=== PATIENT | female | born 1975 | race Caucasian/White ===

== ENCOUNTER → 2019-12-24 10:58 | Outpatient (CLI) | payer OTHER, SELFPAY ==
--- NOTE | ~2019-12-24 | MM_ITS ---
EXAMINATION: MM screening dea BI w lisa HISTORY: Screening mammogram TECHNIQUE: Craniocaudal and mediolateral oblique 3-D tomosynthesis images were obtained and synthetic 2-D images were generated. CAD analysis was submitted and interpreted. COMPARISON: No prior mammogram is available for comparison at this institution. BREAST PARENCHYMAL COMPOSITION: The breasts are extremely dense, which lowers the sensitivity of mamm ography. FINDINGS: There is no evidence of suspicious mass, calcification, or architectural distortion to sugg est malignancy in either breast. IMPRESSION: 1. No mammographic evidence of malignancy. 2. Recommend routine screening mammography in one year. BI-RADS Category 1: Negative Reviewed, dictated and finalized at location A. INE STITCHER
== END ==
PROVIDERS: PCP Family Medicine; Visit Provider Family Medicine
DX: Z12.31 Encounter for screening mammogram for malignant neoplasm of breast (principal)
CPT/HCPCS: 77063; 77067

== ENCOUNTER 2022-04-19 07:55 | Outpatient (CLI) | payer OTHER, SELFPAY ==
[2022-04-19 08:53] LABS: Basophils Absolute Auto 0.1 K/mm3 (0.0-0.1); Basophils Percent Auto 1.1 % (0.2-1.2); Eosinophils Absolute Auto 0.1 K/mm3 (0-0.3); Eosinophils Percent Auto 3.1 % (0-4.4); Hematocrit 41.7 % (37.0-47.0); Lymphocytes Absolute Auto 1.54 K/mm3 (0.9-3.2); Lymphocytes Percent Auto 34.5 % (18.3-44.2); Mean Corpuscular HGB Conc 33.6 g/dl (32-36); Mean Corpuscular Hemoglobin 31.5 pg (26-34); Mean Corpuscular Volume 93.7 fl (80-100); Mean Platelet Volume 10.9 fl (7.4-10.4); Monocytes Absolute Auto 0.4 K/mm3 (0.1-0.6); Monocytes Percent Auto 8.1 % (2.6-8.5); Neutrophils Absolute Auto 2.4 K/mm3 (1.3-6.7); Neutrophils Percent Auto 53.2 % (45.5-73.1); Platelet Count Result 246 k/mm3 (150-375); Red Blood Count 4.45 M/mm3 (4.2-5.4); Red Cell Distribution Width 12.6 % (11.5-14.5); White Blood Count 4.5 K/mm3 (4.5-10.0)
[2022-04-19 09:05] LABS: Alanine Aminotransferase 16 U/L (6-35); Albumin Level 4.3 g/dL (3.5-5.1); Alkaline Phosphatase 37 U/L (38-126); Anion Gap 5 mmol/L (8-16); Aspartate Amino Transferase 20 U/L (14-36); Bilirubin,Total 0.3 mg/dL (0.2-1.3); Blood Urea Nitrogen 27 mg/dL (7-17); Calcium 8.7 mg/dL (8.4-10.2); Carbon Dioxide 27 mmol/L (22-30); Chloride 106 mmol/L (98-107); Cholesterol 178 mg/dL (0-200); Estimated Glomerular Filt Rate > 60; Glucose 82 mg/dL (65-110); HDL Direct 64 mg/dL; Potassium 4.6 mmol/L (3.4-5.0); Sodium 138 mmol/L (137-145); Triglycerides 55 mg/dL (<150)
[2022-04-19 09:16] LABS: LDL Cholesterol Direct 82 mg/dL
== END 2022-04-19 07:56 | disposition home or self-care (01) ==
PROVIDERS: PCP Family Medicine; Visit Provider Nurse Practitioner Gerontology
DX: Z00.00 Encounter for general adult medical examination without abnormal findings (principal)
CPT/HCPCS: 36415; 80053; 80061; 84443; 85025

== ENCOUNTER → 2023-04-04 13:42 | Outpatient (CLI) | payer OTHER, SELFPAY ==
--- NOTE | ~2023-04-04 | MM_ITS ---
EXAMINATION: MM screening dea BI w lisa HISTORY: Screening mammogram TECHNIQUE: Craniocaudal and mediolateral oblique 3-D tomosynthesis images were obtained and synthetic 2-D images were generated. Bilateral exaggerated lateral craniocaudal views CAD analysis was submitt ed and interpreted. COMPARISON: December 24, 2019 bilateral screening mammogram BREAST PARENCHYMAL COMPOSITION: The breasts are extremely dense, which lowers the sensitivity of mamm ography. FINDINGS: There is no evidence of suspicious mass, calcification, or architectural distortion to sugg est malignancy in either breast. There has been no suspicious interval change. IMPRESSION: 1. No mammographic evidence of malignancy. 2. Recommend routine screening mammography in one year. BI-RADS Category 1: Negative Reviewed, dictated and finalized at location A.
== END ==
PROVIDERS: PCP Family Medicine; Visit Provider Nurse Practitioner Gerontology
DX: Z12.31 Encounter for screening mammogram for malignant neoplasm of breast (principal)
CPT/HCPCS: 77063; 77067

== ENCOUNTER 2023-06-25 08:27 | Outpatient (CLI) | payer OTHER, SELFPAY ==
[2023-06-25 09:17] LABS: Basophils Absolute Auto 0.1 K/mm3 (0.0-0.1); Basophils Percent Auto 0.9 % (0.2-1.2); Eosinophils Absolute Auto 0.1 K/mm3 (0-0.3); Eosinophils Percent Auto 2.1 % (0-4.4); Hematocrit 42.1 % (37.0-47.0); Hemoglobin 13.9 g/dL (12.0-15.0); Immature Granulocyte Absolute 0.01 K/mm3 (0.00-0.031); Immature Granulocyte Percent A 0.2 % (0-0.5); Lymphocytes Percent Auto 26.5 % (18.3-44.2); Mean Corpuscular Hemoglobin 31.2 pg (26-34); Mean Corpuscular Volume 94.4 fl (80-100); Mean Platelet Volume 10.9 fl (7.4-10.4); Monocytes Absolute Auto 0.5 K/mm3 (0.1-0.6); Neutrophils Absolute Auto 3.5 K/mm3 (1.3-6.7); Neutrophils Percent Auto 62.3 % (45.5-73.1); Platelet Count Result 218 k/mm3 (150-375); Red Blood Count 4.46 M/mm3 (4.2-5.4); Red Cell Distribution Width 12.1 % (11.5-14.5); White Blood Count 5.7 K/mm3 (4.5-10.0)
[2023-06-25 09:31] LABS: Alanine Aminotransferase 20 U/L (6-35); Albumin Level 4.2 g/dL (3.5-5.1); Alkaline Phosphatase 30 U/L (38-126); Anion Gap 3 mmol/L (8-16); Aspartate Amino Transferase 23 U/L (14-36); Bilirubin,Total 0.5 mg/dL (0.2-1.3); Blood Urea Nitrogen 16 mg/dL (7-17); Calcium 8.9 mg/dL (8.4-10.2); Carbon Dioxide 26 mmol/L (22-30); Chloride 104 mmol/L (98-107); Estimated Glomerular Filt Rate > 60; Glucose 92 mg/dL (65-110); Potassium 4.1 mmol/L (3.4-5.0); Sodium 133 mmol/L (137-145)
== END 2023-06-25 08:28 | disposition home or self-care (01) ==
PROVIDERS: PCP Family Medicine; Visit Provider Physician Assistant
DX: R03.1 Nonspecific low blood-pressure reading (principal); F33.1 Major depressive disorder, recurrent, moderate
CPT/HCPCS: 36415; 80053; 85025

== ENCOUNTER 2023-07-11 08:56 | Outpatient (CLI) | payer OTHER, SELFPAY ==
[2023-07-11 09:56] LABS: Anion Gap 3 mmol/L (8-16); Blood Urea Nitrogen 15 mg/dL (7-17); Calcium 9.1 mg/dL (8.4-10.2); Carbon Dioxide 30 mmol/L (22-30); Chloride 105 mmol/L (98-107); Estimated Glomerular Filt Rate > 60; Glucose 94 mg/dL (65-110); Potassium 4.1 mmol/L (3.4-5.0); Sodium 138 mmol/L (137-145)
== END 2023-07-11 08:57 | disposition home or self-care (01) ==
PROVIDERS: PCP Family Medicine; Visit Provider Physician Assistant
DX: E87.1 Hypo-osmolality and hyponatremia (principal)
CPT/HCPCS: 36415; 80048

== ENCOUNTER 2024-07-21 11:10 | Outpatient (CLI) | payer OTHER, SELFPAY ==
--- NOTE | ~2024-07-21 | MM_ITS ---
EXAMINATION: MM screening dea BI w lisa HISTORY: Screening mammogram TECHNIQUE: Craniocaudal and mediolateral oblique 3-D tomosynthesis images were obtained and synthetic 2-D images were generated. CAD analysis was submitted and interpreted. COMPARISON: 04/04/2023, 12/24/2019 BREAST PARENCHYMAL COMPOSITION:Dense: The breasts are extremely dense, which lowers the sensitivity o f mammography. FINDINGS: No suspicious mass, calcification, or architectural distortion are identified in either brenda ast to suggest malignancy. There has been no suspicious interval change. IMPRESSION: No mammographic evidence of malignancy. Recommend routine screening mammography in one year. BI-RADS Category 1: Negative Reviewed, dictated and finalized at location M.
== END 2024-07-21 11:11 | disposition home or self-care (01) ==
LOC: MICIMG 11:11
PROVIDERS: PCP Family Medicine; Visit Provider Physician Assistant
DX: Z12.31 Encounter for screening mammogram for malignant neoplasm of breast (principal)
CPT/HCPCS: 77063; 77067

== ENCOUNTER 2025-10-20 01:19 | Day surgery (SDC) | payer OTHER, SELFPAY ==
--- OUTSIDE RECORDS SUMMARY | 2019-04-29 06:30 | XMS_ITS | Continuity of Care Document ---
Author Organization [facility] Address [address] [place] [phone] Phone Care Team Providers Care Technical Analyst Name Role Phone Unavailable Unavailable Unavailable Allergies, Adverse Reactions, Alerts Substance Reaction Status Criticality No Known Allergies Active No Inform ation Medications Medication Instructions Dosage Effective Dates (start - stop) Status Comments Paxil 20 mg tablet take 1 tablet by ora l route every day 20 MG - Active Aspirin Low-Strength 81 mg chewable tablet chew 1 tablet by oral route every day - Active Procedures Procedure Date OFFICE OUTPT EST 40 MIN Alcohol and/or drug screening 8 OFFICE OUTPT EST 40 MIN Alcohol and/or drug screening 8 LAPAROSCOPY, SURGICAL, WITH TOTAL HYSTER ECTOMY, FOR UTERUS 250 G OR LESS; CYSTOURETHROSCOPY (SEPARATE PROCEDURE) F LAPAROSCOPY, SURGICAL, WITH TOTAL HYSTER ECTOMY, FOR UTERUS 250 G OR LESS; CYSTOURETHROSCOPY (SEPARATE PROCEDURE) F OFFICE OUTPT EST 25 MIN URINE TEST, BY VISUAL COLOR CO MPARISON METHODS Urinalysis, Auto, w/o Scope LAPS RMVL ADNEXAL STRUXS ENDOMETRIAL BX +-ENDOCRV BX W/O DILAT SP X OFFICE OUTPT EST 25 MIN Alcohol and/or drug screening 6 Urinalysis, Auto, w/o Scope URINE TEST, BY VISUAL COLOR CO MPARISON METHODS COLLECTION OF VENOUS BLOOD BY VENIPUNCTU RE 1ST COMPRE PREV MED E/M NEW PT 18-39 May Advance Directives Directive Yes / No Effective Date File Name No Information Encounters Encounter Description Practice Location Reason(s) For Visit Diagnoses Date Provider Providers Copied on Encounter [facility], [address], [place], [place], [id number] , [place] tel: [phone] [facility] No Information 9 No Information [facility], [address], [place], [place], [id number] , [place] tel: [phone] [facility] Inconclusive mammogram 8 No Information OFFICE OUTPT EST 40 MIN [facility], [address], [place], [place], [id number] , [place] tel: [phone] [facility] 6wk p.o. (chief complaint) MenorrhagiaFemal e sexual arousal disorderEncounte r for screening mammogram for Ca of breastEncounter for screening for malignant neoplasm of cervixEncounter for screening for other disorder 8 No Information OFFICE OUTPT EST 40 MIN [facility], [address], [place], [place], [address] , [place] tel: [phone] [facility] 2wk p.o. (chief complaint) Other specified irregular menstruationEnco unter for screening for malignant neoplasm of cervixFemale sexual arousal disorderEncounte r for screening mammogram for Ca of breastEncounter for screening for other disorder 8 No Information [facility], [address], [place], [place], [id number] , [place] tel: [phone] [facility] No Information 8 No Information [facility], [address], [place], [place], [address] , [place] tel: [phone] [facility] No Information 8 [facility]. [address], [place], [place], [address], [place]. [phone] OFFICE OUTPT EST 25 MIN [facility], [address], [place], [place], [address] , [place] tel: [phone] [facility] Follow Up of post op (chief complaint) MenorrhagiaEncou nter for screening for malignant neoplasm of cervixEncntr for senior statistical programmer exam (general) (routine) w abnormal findings No Information [facility], [address], [place], [place], [address] , [place] tel: [phone] [facility] Outpatient No Information No Information OFFICE OUTPT EST 25 MIN [facility], [address], [place], [place], [id number] , [place] tel: [phone] [facility] EMB (chief complaint) Encounter for other general counseling and advice on contraceptionMen orrhagiaEncounte r for screening for malignant neoplasm of cervixOther specified irregular menstruationEnco unter for screening for other disorderEncntr for senior statistical programmer exam (general) (routine) w abnormal findings 6 No Information 1ST COMPRE PREV MED E/M NEW PT 18-39 [facility], [address], [place], [place], [id number] , [place] tel: [phone] [facility] 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) Gynecological ExaminationSurve illance of other contraceptive method 4 No Information Family History Family Member Type Diagnosis Age At Onset Problem (finding) No family history of Ca ncer, colon Problem (finding) No family history of Ca ncer, ovarian Problem (finding) No family history of Ca ncer, breast Payers Payer name Insurance type Covered libertarian ID Authoriza tion(s) No Information Social History Type Description Quantity Date Captured Comments Alcohol Use Details Unknown Caffeine Use Details Unknown Tobacco Use Status No Information Smoking Status No Information Sex Female Chief Complaint And Reason For Visit No Information Reason For Referral Reason For Referral No Information Plan Of Treatment Date Type Action Status Referral Referred To: [facility] [address] [place], [place] [address]dg
[address], [place], [phone] Ordered: Referrals: Mammography. [facility]. Diagnostic testing Appointment date/timeframe: 02/20/2018 ordered History Of Present Illness Encounter Date Complaint History Of Prese nt Illness 6wk p.o. 42 yr old G0 her e for 6 wk post op visits/p [facility] for menorrhagiadoing well--not requiring pain medstol po, no vbno /fc, moving bowelsneeds appt for mammogrampap neg/neg prior to ORcontinuing discussion about difficulty achieving orgasmno problems in relationshipcan achieve with pillow between legs and squeezing, feels like touching clitoris is either numb or too intenseno luck with vibratorsno vag dryness 2wk p.o. 42 yr old G0 her e for 2 week post op visits/p [facility] for menorrhagia, unable to complete em ablation due to uterine anomalydoing well, no painspotted for a few days, no vbtol po, moving bowels, no f/cno complaintsno mammo yetpap neg/neg prior to ORpt did want to discuss ongoing issue with difficulty achieving orgasm:has only ever been able to achieve orgasm with a pillow between her legs and sort of squeezingintercourse is not painful but no orgasmwhen she or her partner touch her clitoris at first it is just numb but then gets so intense she cannot take it, tried vibrators, did not helpno dryness Follow Up of post op 41 yr old G 0 here for 2 wk post op pt taken to OR 2 wks ago for bilat salpingectomy and ablation due to menorrhagia, uneventful BTL but unable to perform ablation 2/2 uterine anomalydoing well post op--no pain, no vb, alexandra po, no constipation, no f/cpap 05/18 neg/neglast received d[facility]a at [facility] one week ago EMB 41 yr old G0 her e for menorrhagiareports regular menses but very heavy, 5-7 d, passes clots, can mess up clothesdoes not want to have childreninterested in ablation and BTLcurrently on depo for contraceptionpap 05/18 neg/negh/o stroke. 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 fo r annual GYNc/o difficulty obtaining orgasm with partner; no issues with orgasm alone; has never been able to achieve with any partner in past; no issues with libido or attentiveness of partner; has discussed openly with partner and he is receptive to trying different activities to assist; has tried vibrator with partner in past without successgynhx: LMP nonrlast depoprovera at [facility] due next 1 month or so; keeps close track on calendar SA 1 male partner 1.5 yearslast PAP 01/15 NIL (no HPV done); per previous provider 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 Rela vamsi to Encounter for screening for malignant neoplasm of cervix pelvic rest Related to Encou nter for screening for malignant neoplasm of cervix Perform monthly breast self exam s. Related to Encounter for screening for malignant neoplasm of cervix Perform monthly breast self exam s. Related to Menorrhagia Increase physical activity. Rela vamsi to Menorrhagia Increase physical activity. Rela vamsi to Encounter for other general counseling and advice on contraception Reversible methods o f contraception discussed with patient. Related to Encounter for other general counseling and advice on contraception Return in 3 months f or your next depoprovera injection Related to Surveillance of other contraceptive method Assessments Type Assessment Date No Information Patient Care Teams Name Effective Dates (start - stop) Status Members No Information
[2025-09-29 14:35] VITALS: BMI 23.3
[2025-10-20 06:50] VITALS: BP 112/67; PULSE 79; RESP 18; TEMP 37.1; O2SAT 99
[2025-10-20] MEDS: LACTATED RINGERS 1,000 ML 150 ML IV CONT (06:58)
--- NOTE | 2025-10-20 07:04 | WPDANESEPPF ---
Anes - Initial Pre Proc Eval Procedure: Operation Date: 10/20/25 08:00 Proposed Procedures p Screening Colonoscopy - Murray Parker MD Date/Time: 10/20/25 07:04 Surgeon: Murray Parker MD Pre Op Diagnosis: Encounter for screening for malignant neoplasm of Patient Data Age: 50 Gender: F Height: 1.7 m Weight: 67.8 kg Last Vital Signs Temp 98.7 F 10/20/25 06:50 Pulse 79 10/20/25 06:50 Resp 18 10/20/25 06:50 BP 112/67 10/20/25 06:50 Pulse Ox 99 10/20/25 06:50 O2 Del Method Room Air 10/20/25 06:50 Allergies Allergy/AdvReac Type Severity Reaction Status Date / Time No Known Allergies Allergy Verified 10/20/25 06:50 Home Medications ?Medication ?Instructions ?Recorded ?Confirmed ?Type aspirin 81 mg tablet,delayed 81 mg PO DAILY 12/10/20 09/29/25 History release paroxetine HCl 10 mg tablet See Rx Instructions .Route 03/23/25 09/29/25 Rx .COMPLEX #90 tabs spironolactone 100 mg tablet 100 mg PO DAILY #90 tabs 03/23/25 09/29/25 Rx sodium sul 1.479 gram-potas ch See Rx Instructions PO PER PKG DIR 03/31/25 09/29/25 Rx 0.188 gram-magnes sul 0.225 gram #24 tabs tablet (Sutab) Patient hx anesthesia problems: none Family hx anesthesia problems: none Results Review: All pre-operative results and documents have been reviewed as part of the pre-operative evaluation. 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) [place] Surgical History Surgical History History of partial hysterectomy Family History Family History Father Malignant neoplasm of prostate Mother Depression Social History Social History Social History: Smoking packs per day: 1 Smoking cigarettes per day: 20.0 Years smoked: 6 Smoking pack-years: 6.00 Smoking status: Former smoker Second hand tobacco smoke exposure: No Alcohol intake: current Drinks per week: 2 Alcohol use details: Occasionally Substance use: never Substance use type: does not use Living arrangements: with family Occupation/Education: occupation Gender identity (if verbalized by the patient): Female Sexual Orientation (if Verbalized by the Patient): Straight or Heterosexual Anes - Eval Final PreProcedure Day of Procedure 10/20/25 07:04 Patient weight: normal Lungs: normal air movement Airway: Mallampati scale class II Neurological: alert and oriented Last oral intake: >/= 8 hours ASA classification: III Emergent: no Anesthetic plan: proceed Anesthesia type and monitoring: general GIVS and standard monitoring Results Review: All pre-operative results and documents have been reviewed as part of the pre-operative evaluation. 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 Informed Consent: The patient's anesthetic plan and its attendant risks and benefits were discussed with the patient/family/POA. Questions were solicited and answers provided to the satisfaction of the patient/family/POA.
--- NOTE | 2025-10-20 08:11 | P.HP_ITS ---
H&P: HPI History of Present Illness Date/Time: 10/20/25 08:11 Chief Complaint: Screening colonoscopy Narrative: This is the patient's first colonoscopy. There are no GI symptoms and there is no family history of colorectal cancer. 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) [place] Surgical History Surgical History History of partial hysterectomy Family History Family History Father Malignant neoplasm of prostate Mother Depression Social History Social History Social History: Smoking packs per day: 1 Smoking cigarettes per day: 20.0 Years smoked: 6 Smoking pack-years: 6.00 Smoking status: Former smoker Second hand tobacco smoke exposure: No Alcohol intake: current Drinks per week: 2 Alcohol use details: Occasionally Substance use: never Substance use type: does not use Living arrangements: with family Occupation/Education: occupation Gender identity (if verbalized by the patient): Female Sexual Orientation (if Verbalized by the Patient): Straight or Heterosexual Meds Home Medications and Allergies Home Medications ?Medication ?Instructions ?Recorded ?Confirmed ?Type aspirin 81 mg tablet,delayed 81 mg PO DAILY 12/10/20 1 11/29/24 History release paroxetine HCl 10 mg tablet See Rx Instructions .Route 03/23/25 09/29/25 Rx .COMPLEX #90 tabs spironolactone 100 mg tablet 100 mg PO DAILY #90 tabs 03/23/25 09/29/25 Rx sodium sul 1.479 gram-potas ch See Rx Instructions PO PER PKG DIR 03/31/25 09/29/25 Rx 0.188 gram-magnes sul 0.225 gram #24 tabs tablet (Sutab) Allergies Allergy/AdvReac Type Severity Reaction Status Date / Time No Known Allergies Allergy Verified 10/20/25 06:50 Vital Signs Vital Signs - 24 hr 10/20/25 06:50 Temperature 98.7 F Pulse Rate 79 Respiratory Rate 18 Blood Pressure 112/67 Pulse Oximetry 99 Oxygen Delivery Room Air Assessment and Plan Assessment and plan (1) Encounter for screening colonoscopy: Code(s): Z12.11 - Encounter for screening for malignant neoplasm of colon Status: Acute Assessment and Plan: The patient is deemed a good candidate for the procedure. Consent signed. Will proceed. Prior Studies I have reviewed the following patient records and this information was taken into consideration when formulating the assessment and plan.: previous labs, previous ER visits, previous hospitalizations and previous clinic visits
[2025-10-20 08:42] VITALS: BP 113/53; PULSE 58; RESP 24; O2SAT 100
[2025-10-20 08:52] VITALS: BP 104/67; PULSE 56; RESP 19; O2SAT 100
[2025-10-20 09:02] VITALS: BP 111/68; PULSE 64; RESP 23; O2SAT 94
== END 2025-10-20 09:17 | disposition home or self-care (01) ==
PROVIDERS: PCP Family Medicine; Referring Provider Student in an Organized Health Care Education/Training Program; Visit Provider Internal Medicine Gastroenterology
PROC: 0DJD8ZZ Inspection of Lower Intestinal Tract, Via Natural or Artificial Opening Endoscopic (ICD-10-PCS; CPT 45378; principal; 2025-10-20 08:00)
DX: Z12.11 Encounter for screening for malignant neoplasm of colon (principal); Z87.891 Personal history of nicotine dependence
CPT/HCPCS: G0121; J2003; J2704; J7120